=== PATIENT | male | born 1950 | race Caucasian/White ===

== ENCOUNTER → 2017-02-10 | Outpatient (CLI) | payer BC ==
[2017-02-10 10:17] LABS: Basophils % (A) 1 %; CH 31.5; CHCM 34.1; Eosinophils # (A) 0.1 k/uL (0-0.7); Eosinophils % (A) 2 %; HCT 47.4 % (39.0-53.0); HDW 2.46; HGB 15.8 gm/dL (13.0-17.5); Luc # (Auto) 0.12; Luc % (Auto) 3; Lymphocytes % (A) 23 %; MCHC 33.3 g/dL (31.0-37.0); Mean Platelet Volume 6.6; Monocytes # (A) 0.4 k/uL (0-1.0); Monocytes % (A) 9 %; Neutrophils # (A) 2.7 k/uL (1.3-7.7); Neutrophils % (A) 63 %; RDW 13.7 % (11.5-15.5); WBC 4.3 k/uL (3.8-10.6); WBC (Perox) 4.05
[2017-02-10 10:33] LABS: ALT 33 U/L (21-72); AST 26 U/L (17-59); Alkaline Phosphatase 69 U/L (38-126); Anion Gap 8 mmol/L; Blood Urea Nitrogen 19 mg/dL (9-20); Calcium 9.2 mg/dL (8.4-10.2); Carbon Dioxide 28 mmol/L (22-30); Chloride 102 mmol/L (98-107); Cholesterol 174 mg/dL (<200); Glucose 94 mg/dL (74-99); HDL Cholesterol 68 mg/dL (40-60); Non-African American GFR(MDRD) >60 (>60 ml/min/1.73 sqM); Potassium 5.1 mmol/L (3.5-5.1); Sodium 138 mmol/L (137-145); Total Bilirubin 0.7 mg/dL (0.2-1.3); Total Protein 6.7 g/dL (6.3-8.2)
[2017-02-10 12:45] LABS: Hemoglobin A1C 5.6 % (4.2-6.1)
== END | disposition home or self-care (01) ==
LOC: LABWHC1 09:41
PROVIDERS: ATTEND Internal Medicine Critical Care Medicine
DX: N40.0 Benign prostatic hyperplasia without lower urinary tract symptoms (principal); I71.2 Thoracic aortic aneurysm, without rupture; R53.83 Other fatigue; R63.4 Abnormal weight loss
CPT/HCPCS: 36415; 80053; 80061; 82306; 83036; 84439; 84443; 85025

== ENCOUNTER 2017-03-17 08:22 | Day surgery (SDC) | payer BC ==
[2017-03-13 11:20] VITALS: BMI 24.7
[~2017-03-17 08:22] MED LIST: LACTATED RINGERS 1,000 ML IV SCH
[2017-03-17 08:52] VITALS: RESP 16; TEMP 98.1
[2017-03-17] MEDS ORDERED: LIDOCAINE 1% 20 ML VIAL (10MG/ML) FOR IV START INTRADERMA ONE (08:55)
[2017-03-17] MEDS ORDERED: IV FLUID CONTINUATION 1,000 ML IV ONE (09:09)
[2017-03-17] MEDS ORDERED: PROPOFOL 10 MG/ML 20 ML VIAL IV ONE (10:01)
[2017-03-17] MEDS ORDERED: LIDOCAINE 1% INJ 10MG/ML (20 ML MDV) ONE (10:01)
--- NOTE | 2017-03-17 10:38 | P.PCN ---
Date of Procedure: 03/17/17 Procedure(s) Performed: Procedure: Colonoscopy and polypectomy. Preoperative diagnosis: Screening for neoplasia. Postoperative diagnosis: 1. Distal sigmoid polyp snared but no large polyps or cancer. 2. Minimal distal sigmoid diverticulosis. Preparation: HalfLytely prep. Sedation: Was provided by anesthesia. Brief clinical history: The patient is a 66-year-old male who is scheduled for this evaluation for screening for neoplasia age being his risk factor. He had a prior colonoscopy around 20 years ago and he does not remember having had any polyps removed. At this time, he has no abdominal complaints, bleeding or anemia. Procedure: With the patient on his left lateral decubitus position and after informed consent and adequate sedation, the perianal area was inspected and it did not show any fissures or fistulas. There were no masses felt on digital rectal examination. The Olympus CFQ 160L video colonoscope was then inserted in the rectum in the usual fashion and advanced to the cecum. The preparation was good. The mucosa appeared healthy. There was a rare very small diverticular orifice seen in the distal sigmoid with no evidence of acute diverticulitis or strictures. Also, in the distal sigmoid, there was a small to medium-sized multilobed polyp which I snared and retrieved by suction but there were no large polyps or cancer. I retroflexed the endoscope in the rectum before the endoscope was withdrawn. The patient tolerated the procedure well. Plan: The patient was reassured. Discussed dietary measures. He will follow up with you as planned and I recommended repeat exam in 5 years.
[2017-03-17 11:04] VITALS: BP 103/71; PULSE 59
== END 2017-03-17 11:29 | disposition home or self-care (01) ==
LOC: ORWHC2ENDO 08:22
DX: Z12.11 Encounter for screening for malignant neoplasm of colon (principal); D12.5 Benign neoplasm of sigmoid colon; K57.30 Diverticulosis of large intestine without perforation or abscess without bleeding; Z88.0 Allergy status to penicillin
CPT/HCPCS: 88305; 45385; J2001; J2704

== ENCOUNTER 2017-06-14 10:47 | Emergency (ER) | payer BC ==
[2017-06-14 11:00] VITALS: RESP 18
--- NOTE | 2017-06-14 11:31 | ED ---
General Adult HPI - General Chief complaint: Urogenital Stated complaint: UTI Time Seen by Provider: 06/14/17 11:09 Source: patient, RN notes reviewed Mode of arrival: ambulatory Limitations: no limitations - History of Present Illness Initial comments: 66-year-old male who presents emergency room today with a chief complaint of some rectal pain that began approximately a week ago. He states he had similar symptoms approximately a month ago was treated with an antibiotic and symptoms didn't improve. He states that symptoms have returned over the last week. Patient does admit to some symptoms of dysuria. He describes a burning sensation at times. Patient does admit that he does see a urologist. He states his PSA has been blowing his prostate checked in over a year. Patient denies any other complaint or symptoms. Denies any rash or skin change. He states that last time he had some hive-like symptoms. She does admit that he has noticed a bump on the left testicle as well. States that he does feel some pain here at times. Patient denies any recent fever, chills, shortness of breath, chest pain, back pain, abdominal pain, nausea or vomiting, numbness or tingling, constipation or diarrhea, headaches or visual changes, or any other complaints. - Related Data Home Medications Medication Instructions Recorded Confirmed Fexofenadine/Pseudoephedrine 1 tab PO DAILY PRN 06/14/17 06/14/17 [Kari-D 24 Hour Tablet] Previous Rx's Medication Instructions Recorded Ciprofloxacin HCl [Cipro] 500 mg PO Q12HR #20 day 06/14/17 Allergies Allergy/AdvReac Type Severity Reaction Status Date / Time Penicillins Allergy Swelling Verified 06/14/17 12:30 HANDS & FEET, ITCHING Review of Systems ROS Statement: Those systems with pertinent positive or pertinent negative responses have been documented in the HPI. ROS Other: All systems not noted in ROS Statement are negative. Past Medical History Additional Past Medical History / Comment(s): ENVIRONMENTAL ALLGERIES; POSS ASTHMA. STATES THORACIC "AORTA IS LONG." History of Any Multi-Drug Resistant Organisms: None Reported Past Surgical History: Hernia Repair Additional Past Surgical History / Comment(s): COLONOSCOPY Past Anesthesia/Blood Transfusion Reactions: Previous Problems w/ Anesthesia, Motion Sickness Additional Past Anesthesia/Blood Transfusion Reaction / Comment(s): WAS AWAKE BRIEFLY DURING LAST COLONOSCOPY Past Psychological History: No Psychological Hx Reported Smoking Status: Never smoker Past Alcohol Use History: None Reported Past Drug Use History: None Reported - Past Family History Mother Family Medical History: No Reported History Father Family Medical History: Cancer General Exam - General Exam Comments Initial Comments: General: The patient is awake and alert, in no distress, and does not appear acutely ill. Eye: Pupils are equal, round and reactive to light, extra-ocular movements are intact. No nystagmus. There is normal conjunctiva bilaterally. No signs of icterus. Ears, nose, mouth and throat: There are moist mucous membranes and no oral lesions. Neck: The neck is supple, there is no tenderness or JVD. Cardiovascular: There is a regular rate and rhythm. No murmur, rub or gallop is appreciated. Respiratory: Lungs are clear to auscultation, respirations are non-labored, breath sounds are equal. No wheezes, stridor, rales, or rhonchi. Gastrointestinal: Soft, non-distended, non-tender abdomen without masses or organomegaly noted. There is no rebound or guarding present. No CVA tenderness. Bowel sounds are unremarkable. Musculoskeletal: Normal ROM, no tenderness. Strength 5/5. Sensation intact. Pulses equal bilaterally 2+. Neurological: A&O x 3. CN II-XII intact, There are no obvious motor or sensory deficits. Coordination appears grossly intact. Speech is normal. Skin: Skin is warm and dry and no rashes or lesions are noted. Psychiatric: Cooperative, appropriate mood & affect, normal judgment. : Circumcised male. No obvious swelling or rash. Normal external exam. Normal rectal tone. Mild tenderness on exam. Patient has no swelling appreciated to the scrotum or testicles. Limitations: no limitations Course Vital Signs 06/14/17 10:57 Temperature 97.7 F Pulse Rate 60 Respiratory 18 Rate Blood Pressure 135/77 O2 Sat by Pulse 99 Oximetry Medical Decision Making - Medical Decision Making Patient's ultrasound has been reviewed and does show some cyst over on the right testicle. No other acute abnormalities. Patient urinalysis is unremarkable no sign of infection. Patient does have some tenderness with rectal exam. Patient will be covered for prostatitis placed on ciprofloxacin. He is advised to follow-up with his urologist over the next 2 days. Advised return here to the emergency room if symptoms increase or worsen or for any other concerns. - Lab Data Lab Results 06/14/17 Range/Units 11:45 Urine Color Colorless Urine Appearance Clear (Clear) Urine pH 6.5 (5.0-8.0) Ur Specific [place] 1.003 (1.001-1.035) Urine Protein Negative (Negative) Urine Glucose (UA) Negative (Negative) Urine Ketones Negative (Negative) Urine Blood Negative (Negative) Urine Nitrite Negative (Negative) Urine Bilirubin Negative (Negative) Urine Urobilinogen <2.0 (<2.0) mg/dL Ur Leukocyte Esterase Negative (Negative) Disposition Clinical Impression: Prostatitis Disposition: HOME SELF-CARE Condition: Good Instructions: Prostatitis (ED) Additional Instructions: Please use medication as discussed. Please follow-up with urologist in the next 2 days. Please return to emergency room if the symptoms increase or worsen or for any other concerns. Prescriptions: Ciprofloxacin HCl [Cipro] 500 mg PO Q12HR #20 day Referrals: Jaret Frankel DO [Primary Care Provider] - 1-2 days Time of Disposition: 13:15
[2017-06-14 12:03] LABS: Appearance,Urine Clear (Clear); Bilirubin,Urine Negative (Negative); Blood,Urine Negative (Negative); Color,Urine Colorless; Glucose,Urine (UA) Negative (Negative); Ketones,Urine Negative (Negative); Leukocyte Esterase,Urine Negative (Negative); Nitrite,Urine Negative (Negative); PH, Urine 6.5 (5.0-8.0); Protein,Urine Negative (Negative); Specific Gravity,Urine 1.003 (1.001-1.035); Urobilinogen,Urine <2.0 mg/dL (<2.0)
--- NOTE | 2017-06-14 12:39 | US ---
EXAMINATION TYPE: US scrotum with doppler. Grayscale and color Doppler Duplex imaging performed of t eloy scrotum. DATE OF EXAM: 06/14/2017 COMPARISON: NONE CLINICAL HISTORY: Pain. EXAM MEASUREMENTS: TESTICLES: Right Testicle: 5.6 x 2.2 x 3.1 cm Left Testicle: 5.1 x 2.0 x 3.0 cm EPIDIDYMIS HEAD: Right Epididymis: 3.2 cm Cysts largest measuring 2.9 x 1.7 x 2.3 Left Epididymis: 1.0 cm Doppler performed to assess for testicular vascularity; good bilateral color flow and waveforms are s een. There is no evidence of testicular torsion. Presence of hydroceles: no Presence of varicoceles: unable to asses on left no enough tissue to scan lateral or inferior IMPRESSION: No testicular torsion or mass. Right epididymal multiple cysts.
[2017-06-14 13:22] VITALS: BP 129/79; PULSE 59; TEMP 97.6
== END 2017-06-14 13:23 | disposition home or self-care (01) ==
LOC: EC 10:47
DX: N41.9 Inflammatory disease of prostate, unspecified (principal); N44.2 Benign cyst of testis; Z88.0 Allergy status to penicillin
CPT/HCPCS: 76870; 81003; 87086; 93975; 99284

== ENCOUNTER 2018-06-23 09:41 | Emergency (ER) | payer MEDICARE, BC ==
[2018-06-23] MEDS ORDERED: SODIUM CHLORIDE 0.9% 1,000 ML IV STA (09:53)
--- NOTE | 2018-06-23 10:26 | ED ---
Syncope HPI - General Chief Complaint: Chest Pain Stated Complaint: CHEST PAIN Time Seen by Provider: 06/23/18 09:53 Source: patient, RN notes reviewed, old records reviewed Mode of arrival: wheelchair Limitations: no limitations - History of Present Illness Initial Comments: This is a 67-year-old male to the ER for evaluation. Patient does say for evaluation OF chest pain with a near syncopal versus syncopal event. Unsure. There is no medical history takes no medication. States he does have gallbladder issues as he does experience pain after eating. But no prior evaluation. Patient one other syncopal episode about 12 years ago that was also social no chest pain with no significant findings. At that time patient to go to stress test and further testing. Patient currently feels little bit weak, family member states that he does look a little pale. Patient is still having mild chest pain MD Complaint: loss of consciousness, almost passed out -: hour(s) Prodromal Symptoms: chest pain Description of Event: other (None) -: second(s) Witnessed: no Injuries Sustained Associated with Event: None Current Symptoms: none History: previous syncopal episode Context: during exertion Treatments Prior to Arrival: none - Related Data Home Medications Medication Instructions Recorded Confirmed No Known Home Medications 06/23/18 06/23/18 Allergies Allergy/AdvReac Type Severity Reaction Status Date / Time Penicillins Allergy Swelling Verified 06/23/18 10:31 HANDS & FEET, ITCHING Review of Systems ROS Statement: Those systems with pertinent positive or pertinent negative responses have been documented in the HPI. ROS Other: All systems not noted in ROS Statement are negative. Past Medical History Additional Past Medical History / Comment(s): ENVIRONMENTAL ALLGERIES; POSS ASTHMA. STATES THORACIC "AORTA IS LONG." History of Any Multi-Drug Resistant Organisms: None Reported Past Surgical History: Hernia Repair Additional Past Surgical History / Comment(s): COLONOSCOPY Past Anesthesia/Blood Transfusion Reactions: Previous Problems w/ Anesthesia, Motion Sickness Additional Past Anesthesia/Blood Transfusion Reaction / Comment(s): WAS AWAKE BRIEFLY DURING LAST COLONOSCOPY Past Psychological History: No Psychological Hx Reported Smoking Status: Never smoker Past Alcohol Use History: Occasional Past Drug Use History: None Reported - Past Family History Mother Family Medical History: No Reported History Father Family Medical History: Cancer General Exam Limitations: no limitations General appearance: alert, in no apparent distress Head exam: Present: atraumatic, normocephalic, normal inspection Eye exam: Present: normal appearance, PERRL, EOMI. Absent: scleral icterus, conjunctival injection, periorbital swelling ENT exam: Present: normal exam, mucous membranes moist Neck exam: Present: normal inspection. Absent: tenderness, meningismus, lymphadenopathy Respiratory exam: Present: normal lung sounds bilaterally. Absent: respiratory distress, wheezes, rales, rhonchi, stridor Cardiovascular Exam: Present: regular rate, normal rhythm, normal heart sounds. Absent: systolic murmur, diastolic murmur, rubs, gallop, clicks GI/Abdominal exam: Present: soft, normal bowel sounds. Absent: distended, tenderness, guarding, rebound, rigid Extremities exam: Present: normal inspection, full ROM, normal capillary refill. Absent: tenderness, pedal edema, joint swelling, calf tenderness Back exam: Present: normal inspection Neurological exam: Present: alert, oriented X3, CN II-XII intact Psychiatric exam: Present: normal affect, normal mood Skin exam: Present: warm, dry, intact, normal color. Absent: rash Course Vital Signs 06/23/18 06/23/18 06/23/18 09:43 12:25 13:40 Temperature 97.7 F Pulse Rate 70 64 68 Respiratory 20 18 18 Rate Blood Pressure 170/86 130/82 114/87 O2 Sat by Pulse 99 97 97 Oximetry - Reevaluation(s) Reevaluation #1: 06/23/18 10:53 Medical records reviewed Reevaluation #2: 06/23/18 13:45 Patient is completely asymptomatic no headache chest pain shortness breath or abdominal pain. States he feels well like to be discharged home EKG Findings - EKG Comments: EKG Findings:: EKG shows sinus rhythm rate of 76, AL 150, QRS 104, QTc 459 Medical Decision Making - Medical Decision Making 67 male the ER with near syncopal events occurred while bending over, patient also states that he feels like and thinks that he has gallbladder issues. Recent ultrasound is positive for chronic cholecystitis which she will follow- up with surgery in the near future. Otherwise patient has no significant symptoms currently. Patient can be discharged home - Lab Data Result diagrams: 06/23/18 10:13 06/23/18 10:13 Lab Results 06/23/18 06/23/18 06/23/18 Range/Units 10:13 10:13 10:13 WBC 4.9 (3.8-10.6) k/uL RBC 5.41 (4.30-5.90) m/uL Hgb 16.4 (13.0-17.5) gm/dL Hct 48.3 (39.0-53.0) % MCV 89.3 (80.0-100.0) fL MCH 30.3 (25.0-35.0) pg MCHC 34.0 (31.0-37.0) g/dL RDW 12.7 (11.5-15.5) % Plt Count 338 (150-450) k/uL Neutrophils % 60 % Lymphocytes % 28 % Monocytes % 6 % Eosinophils % 3 % Basophils % 1 % Neutrophils # 2.9 (1.3-7.7) k/uL Lymphocytes # 1.4 (1.0-4.8) k/uL Monocytes # 0.3 (0-1.0) k/uL Eosinophils # 0.2 (0-0.7) k/uL Basophils # 0.0 (0-0.2) k/uL PT (9.0-12.0) sec INR (<1.2) APTT (22.0-30.0) sec D-Dimer (<0.60) mg/L FEU Sodium 139 (137-145) mmol/L Potassium 4.5 (3.5-5.1) mmol/L Chloride 103 (98-107) mmol/L Carbon Dioxide 27 (22-30) mmol/L Anion Gap 9 mmol/L BUN 20 (9-20) mg/dL Creatinine 0.85 (0.66-1.25) mg/dL Est GFR (CKD-EPI)AfAm >90 (>60 ml/min/1.73 sqM) Est GFR (CKD-EPI)NonAf >90 (>60 ml/min/1.73 sqM) Glucose 160 H (74-99) mg/dL Calcium 9.8 (8.4-10.2) mg/dL Magnesium 2.0 (1.6-2.3) mg/dL Total Bilirubin 0.9 (0.2-1.3) mg/dL AST 26 (17-59) U/L ALT 32 (21-72) U/L Alkaline Phosphatase 67 (38-126) U/L Total Creatine Kinase 173 H (55-170) U/L CK-MB (CK-2) 3.1 H (0.0-2.4) ng/mL CK-MB (CK-2) Rel Index 1.8 Troponin I <0.012 (0.000-0.034) ng/mL NT-Pro-B Natriuret Pep pg/mL Total Protein 6.8 (6.3-8.2) g/dL Albumin 4.6 (3.5-5.0) g/dL Lipase 97 (23-300) U/L 06/23/18 06/23/18 Range/Units 10:13 10:13 WBC (3.8-10.6) k/uL RBC (4.30-5.90) m/uL Hgb (13.0-17.5) gm/dL Hct (39.0-53.0) % MCV (80.0-100.0) fL MCH (25.0-35.0) pg MCHC (31.0-37.0) g/dL RDW (11.5-15.5) % Plt Count (150-450) k/uL Neutrophils % % Lymphocytes % % Monocytes % % Eosinophils % % Basophils % % Neutrophils # (1.3-7.7) k/uL Lymphocytes # (1.0-4.8) k/uL Monocytes # (0-1.0) k/uL Eosinophils # (0-0.7) k/uL Basophils # (0-0.2) k/uL PT 10.5 (9.0-12.0) sec INR 1.0 (<1.2) APTT 22.9 (22.0-30.0) sec D-Dimer 0.35 (<0.60) mg/L FEU Sodium (137-145) mmol/L Potassium (3.5-5.1) mmol/L Chloride (98-107) mmol/L Carbon Dioxide (22-30) mmol/L Anion Gap mmol/L BUN (9-20) mg/dL Creatinine (0.66-1.25) mg/dL Est GFR (CKD-EPI)AfAm (>60 ml/min/1.73 sqM) Est GFR (CKD-EPI)NonAf (>60 ml/min/1.73 sqM) Glucose (74-99) mg/dL Calcium (8.4-10.2) mg/dL Magnesium (1.6-2.3) mg/dL Total Bilirubin (0.2-1.3) mg/dL AST (17-59) U/L ALT (21-72) U/L Alkaline Phosphatase (38-126) U/L Total Creatine Kinase (55-170) U/L CK-MB (CK-2) (0.0-2.4) ng/mL CK-MB (CK-2) Rel Index Troponin I (0.000-0.034) ng/mL NT-Pro-B Natriuret Pep 52 pg/mL Total Protein (6.3-8.2) g/dL Albumin (3.5-5.0) g/dL Lipase (23-300) U/L - Radiology Data Radiology results: report reviewed (Ultrasound gallbladder positive for chronic cholecystitis), image reviewed Disposition Clinical Impression: Near syncope Disposition: HOME SELF-CARE Condition: Good Instructions: Near Syncope (ED), Cholecystitis (ED) Is patient prescribed a controlled substance at d/c from ED?: No Referrals: Jaret Frankel DO [Primary Care Provider] - 1-2 days
[2018-06-23 10:30] LABS: Basophils % (A) 1 %; Eosinophils # (A) 0.2 k/uL (0-0.7); Eosinophils % (A) 3 %; HCT 48.3 % (39.0-53.0); HGB 16.4 gm/dL (13.0-17.5); Lymphocytes # (A) 1.4 k/uL (1.0-4.8); Lymphocytes % (A) 28 %; MCH 30.3 pg (25.0-35.0); MCV 89.3 fL (80.0-100.0); Mean Platelet Volume 6.2; Monocytes # (A) 0.3 k/uL (0-1.0); Monocytes % (A) 6 %; Neutrophils # (A) 2.9 k/uL (1.3-7.7); Neutrophils % (A) 60 %; Platelet Count 338 k/uL (150-450); RBC 5.41 m/uL (4.30-5.90); RDW 12.7 % (11.5-15.5); WBC 4.9 k/uL (3.8-10.6)
[2018-06-23 10:42] LABS: ALT 32 U/L (21-72); AST 26 U/L (17-59); Albumin 4.6 g/dL (3.5-5.0); Alkaline Phosphatase 67 U/L (38-126); Anion Gap 9 mmol/L; Blood Urea Nitrogen 20 mg/dL (9-20); Calcium 9.8 mg/dL (8.4-10.2); Carbon Dioxide 27 mmol/L (22-30); Chloride 103 mmol/L (98-107); Glucose 160 mg/dL (74-99); Lipase 97 U/L (23-300); Potassium 4.5 mmol/L (3.5-5.1); Sodium 139 mmol/L (137-145); Total Bilirubin 0.9 mg/dL (0.2-1.3); Total Protein 6.8 g/dL (6.3-8.2)
[2018-06-23 10:53] LABS: Creatine Kinase 173 U/L (55-170)
[2018-06-23 10:56] LABS: D-Dimer 0.35 mg/L FEU (<0.60); Partial Thromboplastin Time 22.9 sec (22.0-30.0); Prothrombin Time 10.5 sec (9.0-12.0)
[2018-06-23 11:07] LABS: Creatine Kinase MB 3.1 ng/mL (0.0-2.4); Troponin I <0.012 ng/mL (0.000-0.034)
[2018-06-23 12:26] VITALS: RESP 18
--- NOTE | 2018-06-23 13:21 | US ---
EXAMINATION TYPE: US gallbladder DATE OF EXAM: 06/23/2018 COMPARISON: NONE CLINICAL HISTORY: Pain. Right sided abdominal pain, patient ate [employer] 2 hours prior to exam EXAM MEASUREMENTS: Liver Length: 14.2 cm Gallbladder Wall: 0.3 cm CBD: 0.4 cm Right Kidney: 10.7 x 4.9 x 5.1 cm Technical limitations due to large amount of overlying bowel content Pancreas: Obscured by bowel gas Liver: visualized portions appear within normal limits Gallbladder: contacted Evidence for sonographic Arshad's sign: no CBD: appears wnl Right Kidney: no evidence of hydronephrosis as visualized There is no ascites. IMPRESSION: Exam is limited. Gallbladder wall is borderline thickened and somewhat contracted, correl ate to exclude chronic cholecystitis.
[2018-06-23 13:41] VITALS: BP 114/87; PULSE 68
[2018-06-23 14:00] VITALS: TEMP 98.2
== END 2018-06-23 14:00 | disposition home or self-care (01) ==
LOC: EC 09:41
DX: R55 Syncope and collapse (principal); R07.9 Chest pain, unspecified; Z88.0 Allergy status to penicillin
CPT/HCPCS: 36415; 76705; 80053; 82550; 82553; 83690; 83735; 83880; 84484; 85025; 85379; 85610; 85730; 93005; 96360; 96361; 99285

== ENCOUNTER → 2018-07-15 | Outpatient (CLI) | payer MEDICARE ==
--- NOTE | 2018-07-15 17:33 | NM ---
EXAMINATION TYPE: NM hepatobiliary w EF DATE OF EXAM: 07/15/2018 COMPARISON: Ultrasound gallbladder 06/23/2017 HISTORY: Right upper quadrant pain TECHNIQUE: After the intravenous administration of 5.46 mCi Tc 99m Mebrofenin hepatobiliary scintigra phy is performed. Immediate images post injection. FINDINGS: There is satisfactory initial accumulation of tracer by the liver. The gallbladder is visualized wit hin 8 minutes. The small bowel activity is noted within 24 minutes. At one hour 8 ounces of oral en sure plus is given to mimic CCK and gallbladder ejection fraction is calculated at 92 %, in the above limit of normal range. Therefore there is no scintigraphic evidence of cystic or common bile duct o bstruction to suggest acute cholecystitis. IMPRESSION: Findings suggest possible hyper dynamic gallbladder.
--- NOTE | 2018-07-16 11:45 | ECHOF ---
Referral Reason:I71.2 Thoracic aneurysm w/o mention of rupture... MEASUREMENTS -------- HEIGHT: 175.3 cm WEIGHT: 78.0 kg BP: 137/83 IVSd: 1.3 cm (0.6 - 1.1) LVIDd: 4.5 cm (3.9 - 5.3) LVPWd: 1.2 cm (0.6 - 1.1) IVSs: 1.6 cm LVIDs: 3.0 cm LVPWs: 1.5 cm LA Diam: 3.3 cm (2.7 - 3.8) RVIDd: 2.9 cm (< 3.3) LAESV Index (A-L): 25.74 ml/m Ao Diam: 4.5 cm (2.0 - 3.7) EPSS: 1.2 cm MV E Mohit: 0.63 m/s MV DecT: 323 ms MV A Mohit: 1.02 m/s MV E/A Ratio: 0.62 RAP: 5.00 mmHg RVSP: 27.65 mmHg MV EF SLOPE: 70.53 mm/s (70 - 150) MV EXCURSION: 10.41 mm (> 18.000) FINDINGS -------- Sinus rhythm. This was a technically good study. The left ventricular size is normal. There is mild concentric left ventricular hypertrophy. Overa ll left ventricular systolic function is normal with, an EF between 60 - 65 %. The right ventricle is normal in size. Normal LA size by volume 22+/-6 ml/m2. The right atrium is normal in size. The aortic valve is trileaflet and appears structurally normal. The mitral valve leaflets are mildly thickened. Mild tricuspid regurgitation present. Right ventricular systolic pressure is normal at < 35 mmHg. The pulmonic valve was not well visualized. The aortic root is dilated measuring 4.5cm. Normal inferior vena cava with normal inspiratory collapse consistent with estimated right atrial pre ssure of 5 mmHg. There is no pericardial effusion. CONCLUSIONS -------- 1. Sinus rhythm. 2. This was a technically good study. 3. The left ventricular size is normal. 4. There is mild concentric left ventricular hypertrophy. 5. Overall left ventricular systolic function is normal with, an EF between 60 - 65 %. 6. The right ventricle is normal in size. 7. Normal LA size by volume 22+/-6 ml/m2. 8. The right atrium is normal in size. 9. The aortic valve is trileaflet and appears structurally normal. 10. The mitral valve leaflets are mildly thickened. 11. Mild tricuspid regurgitation present. 12. Right ventricular systolic pressure is normal at < 35 mmHg. 13. The pulmonic valve was not well visualized. 14. The aortic root is dilated measuring 4.5cm. 15. Normal inferior vena cava with normal inspiratory collapse consistent with estimated right atrial pressure of 5 mmHg. 16. There is no pericardial effusion. [employer]: Rose May RDCS
== END | disposition home or self-care (01) ==
LOC: RADECHMAIN 12:47
PROVIDERS: ATTEND Internal Medicine Critical Care Medicine
DX: K81.9 Cholecystitis, unspecified (principal); I07.1 Rheumatic tricuspid insufficiency
CPT/HCPCS: 93306; 78226; A9537

== ENCOUNTER → 2018-09-23 | Outpatient (CLI) | payer MEDICARE | END | disposition home or self-care (01) | LOC: LABWHC1 09:06 | PROVIDERS: ATTEND Urology | DX: N40.0 Benign prostatic hyperplasia without lower urinary tract symptoms (principal) | CPT/HCPCS: 36415; 84153; 84154 ==

== ENCOUNTER 2018-11-17 09:53 | Emergency (ER) | payer MEDICARE ==
[2018-11-17] MEDS ORDERED: DIPH,PERTUS(ACELL)TETVAC-LF 0.5 ML VIAL IM ONE (10:15)
--- NOTE | 2018-11-17 10:17 | ED ---
General Adult HPI - General Chief complaint: Wound/Laceration Stated complaint: HEAD INJURY Time Seen by Provider: 11/17/18 10:06 Source: patient, RN notes reviewed Mode of arrival: ambulatory Limitations: no limitations - History of Present Illness Initial comments: 68-year-old male presents to the emergency department for a chief complaint of head injury x 1 hour. Patient was working when a wooden 2 x 4 fell and hit him on the top of the head. Patient states this fell from a few feet above his head. States that people he was working with were trying to nail it into the wall when they dropped it. Patient states it did bleed. He denies any loss of consciousness. He denies any blood thinners. He denies any headache at this time. States he is feeling his normal self. States he is not up-to-date on tetanus. States that his friend from a brain hemorrhage so wanted to be evaluated. Patient has no other complaints at this time including shortness of breath, chest pain, abdominal pain, nausea or vomiting, headache, or visual changes. - Related Data Home Medications Medication Instructions Recorded Confirmed Fexofenadine/Pseudoephedrine 1 tab PO DAILY PRN 11/17/18 11/17/18 [Kari-D 12 Hour Tablet] Allergies Allergy/AdvReac Type Severity Reaction Status Date / Time Penicillins Allergy Swelling Verified 11/17/18 10:01 HANDS & FEET, ITCHING Review of Systems ROS Statement: Those systems with pertinent positive or pertinent negative responses have been documented in the HPI. ROS Other: All systems not noted in ROS Statement are negative. Past Medical History Additional Past Medical History / Comment(s): ENVIRONMENTAL ALLGERIES; POSS ASTHMA. STATES THORACIC "AORTA IS LONG." History of Any Multi-Drug Resistant Organisms: None Reported Past Surgical History: Hernia Repair Additional Past Surgical History / Comment(s): COLONOSCOPY Past Anesthesia/Blood Transfusion Reactions: Previous Problems w/ Anesthesia, Motion Sickness Additional Past Anesthesia/Blood Transfusion Reaction / Comment(s): WAS AWAKE BRIEFLY DURING LAST COLONOSCOPY Past Psychological History: No Psychological Hx Reported Smoking Status: Never smoker Past Alcohol Use History: Occasional Past Drug Use History: None Reported - Past Family History Mother Family Medical History: No Reported History Father Family Medical History: Cancer General Exam Limitations: no limitations General appearance: alert, in no apparent distress Head exam: Present: normocephalic, normal inspection. Absent: atraumatic (there is a small 1 cm x 1 cm abrasion noted to the top of the head) Eye exam: Present: normal appearance, PERRL, EOMI. Absent: scleral icterus, conjunctival injection, periorbital swelling, periorbital tenderness ENT exam: Present: normal exam, normal oropharynx, mucous membranes moist, TM's normal bilaterally (negative hemotympanum), normal external ear exam Neck exam: Present: normal inspection, full ROM. Absent: tenderness, meningismus, lymphadenopathy Respiratory exam: Present: normal lung sounds bilaterally. Absent: respiratory distress, wheezes, rales, rhonchi, stridor Cardiovascular Exam: Present: regular rate, normal rhythm, normal heart sounds. Absent: systolic murmur, diastolic murmur, rubs, gallop, clicks Neurological exam: Present: alert, oriented X3, CN II-XII intact, normal gait, other (GCS 15) Psychiatric exam: Present: normal affect, normal mood Course Vital Signs 11/17/18 09:54 Temperature 97.0 F L Pulse Rate 66 Respiratory 16 Rate Blood Pressure 150/85 O2 Sat by Pulse 97 Oximetry - Reevaluation(s) Reevaluation #1: 11/17/18 11:[address] stuck in dictated mode Medical Decision Making - Medical Decision Making 68-year-old male presents for headache injury after a 2 x 4 fell from a few feet above him and hit him in the head. Patient is well-appearing no neurologic deficits. No loss of consciousness. Small abrasion noted to the top of the skull, no lacerations. CT shows no acute intracranial hemorrhage or midline shift. There is a soft tissue contusion at the frontal skull vertex. Other age-related atrophy noted. Discussed concussion Russians the patient. Discussed going up with primary care in 1-2 days and returning here if he has any worsening symptoms. Disposition Clinical Impression: Head injury Disposition: HOME SELF-CARE Condition: Good Instructions (If sedation given, give patient instructions): Head Injury (ED) Additional Instructions: Please take Tylenol for pain. Please follow-up with primary care in 1-2 days. Monitor for signs of infection and return if these occur. Return if any other worsening symptoms such as severe headache or confusion. Is patient prescribed a controlled substance at d/c from ED?: No Referrals: Jaret Frankel, [Primary Care Provider] - 1-2 days Time of Disposition: 11:53
--- NOTE | 2018-11-17 11:49 | CT ---
EXAMINATION TYPE: CT brain wo con DATE OF EXAM: 11/17/2018 COMPARISON: None HISTORY: head injury CT DLP: 1174.4 mGycm Automated exposure control for dose reduction was used. TECHNIQUE: CT scan of the head is performed without contrast. FINDINGS: There is no acute intracranial hemorrhage or midline shift identified. There is mild vent ricular and sulcal prominence consistent with mild diffuse age-related cerebral atrophy. There a few areas of low-attenuation in the periventricular white matter most commonly related to chronic small vessel ischemic change. The globes are intact and the visualized sinuses are clear. Soft tissue co ntusion of the frontal skull vertex is seen. IMPRESSION: No acute intracranial hemorrhage or midline shift. There is mild age-related cerebral a trophy and few foci of periventricular/subcortical hypoattenuation, likely on the basis of chronic mi croangiopathy. Soft tissue contusion at the frontal skull vertex.
[2018-11-17 12:05] VITALS: BP 125/84; PULSE 64; RESP 18; TEMP 97.4
== END 2018-11-17 12:03 | disposition home or self-care (01) ==
LOC: EC 09:53
DX: S00.01XA Abrasion of scalp, initial encounter (principal); Z88.0 Allergy status to penicillin; Z23 Encounter for immunization; W20.8XXA Other cause of strike by thrown, projected or falling object, initial encounter; Y93.89 Activity, other specified; Y92.89 Other specified places as the place of occurrence of the external cause
CPT/HCPCS: 70450; 90471; 90715; 99283

== ENCOUNTER → 2023-06-03 | Outpatient (CLI) | payer MEDICARE ==
--- NOTE | 2023-06-09 20:25 | CT ---
EXAMINATION TYPE: CT sinus wo con CT DLP: 484.0 mGycm, Automated exposure control for dose reduction was used. DATE OF EXAM: 06/03/2023 2:51 PM COMPARISON: . CLINICAL INDICATION:Male, 72 years old with history of J32.9 CHRONIC SINUSITIS, UNSPECIFIED; , Chroni c sinusitis. TECHNIQUE: Multiple thin axial images were obtained through the paranasal sinuses without the use of IV contrast. Additional coronal and sagittal reformatted images were submitted for evaluation. Contrast used: none Oral contrast used: none FINDINGS: Frontal sinuses: Normally developed and aerated. Frontal Recess: Clear Maxillary Sinuses: Normally developed and aerated. Mild mucosal thickening on the left mostly inferio rly, and there are small polyps or mucous retention cysts seen along the medial wall measuring 4.6 mm and superior wall measuring 2.6 mm and 4 mm. A couple of dental implants in the posterior right maxi lla do not extend into the sinus cavity but there is mildly irregular new bone formation seen adjacen t to them superiorly along the inferior right maxillary sinus wall. Maxillary Infundibula([facility]): Patent with mild mucosal thickening mildly narrowing the infundibula. Ethmoid sinuses: Normally developed and aerated. Ethmoidal notch: Protected and abutting the lateral lamina. Sphenoid sinuses: Normally developed and aerated. There is unremarkable sphenoid sinus pneumatization without evidence of dehiscence. No dehiscence of carotid canal. No evidence of optic nerve dehiscen ce within the sphenoid sinus. Sphenoethmoidal recesses: Appear clear.. Nasal septum: Mild nasal septal deviation towards the left anteriorly and superiorly.. Nasal Turbinates: Within normal limits. . Mastoid air cells & middle ears: Mastoid air cells are somewhat underpneumatized but are otherwise cl ear. The middle ears are grossly unremarkable. Modified Soft tissues & Brain: Partially seen without gross abnormality. Globes appear intact. There has likely been prior lens surgery bilaterally.. Other: Cribriform plate demonstrates symmetric Keros classification type 3 cribriform plate. No evidence of bony dehiscence of skull base. Lamina papyracea is intact without evidence of remote orbital fracture or orbital prolapse into the e thmoid sinus. IMPRESSION: Mild mucosal thickening of the left maxillary sinus, with small mucous retention cysts or polyps. Ostiomeatal complexes appear patent with mild soft tissue narrowing of the infundibula bilaterally. No paranasal sinus air-fluid levels.
== END | disposition home or self-care (01) ==
LOC: RADCTMAIN 14:27
PROVIDERS: ATTEND Internal Medicine Critical Care Medicine
DX: J32.9 Chronic sinusitis, unspecified (principal); J34.89 Other specified disorders of nose and nasal sinuses; J34.1 Cyst and mucocele of nose and nasal sinus; M79.89 Other specified soft tissue disorders
CPT/HCPCS: 70486

== ENCOUNTER 2024-05-19 11:43 | Day surgery (SDC) | payer MEDICARE ==
[2024-05-17 09:45] VITALS: BMI 25.9
[2024-05-19 12:57] VITALS: TEMP 97.2
[2024-05-19] MEDS: IV FLUID CONTINUATION 1,000 ML IV ONE ×2 (12:57→13:31)
[2024-05-19] MEDS: LACTATED RINGERS 1,000 ML IV SCH (12:58)
[2024-05-19] MEDS: LIDOCAINE 1% (10MG/ML) FOR IV START INTRADERMA PRN (12:58)
[2024-05-19] MEDS ORDERED: PROPOFOL 10 MG/ML 20 ML VIAL IV ONE (13:32)
[2024-05-19] MEDS ORDERED: LIDOCAINE 1% INJ 10MG/ML (20 ML MDV) ONE (13:32)
--- NOTE | 2024-05-19 13:56 | P.PCN ---
Date of Procedure: 05/19/24 Procedure(s) Performed: BRIEF HISTORY: Patient is a 73-year-old pleasant white male scheduled for an elective colonoscopy as a part of evaluation by history of colon polyps PROCEDURE PERFORMED: Colonoscopy polypectomy and biopsy. PREOPERATIVE DIAGNOSIS: History of colon polyps. IV sedation per Anesthesia. PROCEDURE: After informed consent was obtained, the patient, was brought into the endoscopy unit. IV sedation was administered by Anesthesia under continuous monitoring. Digital rectal examination was normal. Initially the Olympus CF-160 flexible video colonoscope was then inserted in the rectum, gradually advanced into the cecum without any difficulty. Careful examination was performed as the scope was gradually being withdrawn. Ileocecal valve and the appendiceal orifice were visualized and appeared normal. Prep was excellent. Mucosa of the cecum, ascending colon, appeared normal. The transverse colon there was a 3 mm polyp removed by cold biopsy. In the descending colon is a 1.5 cm and 2.5 cm broad- based polyps both which were removed by snare polypectomy and complete polypect ranjit accomplished. Rest of the transverse colon, descending colon, sigmoid colon, and rectum appeared normal. Retroflexion was performed in the rectum and no lesions were seen. The patient tolerated the procedure well. IMPRESSION: 3 mm transverse colon polyp status post cold biopsy 1.5 cm and 2.5 cm broad-based descending colon polyp status post snare polypectomy RECOMMENDATIONS: Findings of this examination were discussed with the patient as well as his family.. Advised to follow with the biopsy results. If the biopsy reveals adenoma he can have repeat colonoscopy in 3 years.
[2024-05-19 14:04] VITALS: PULSE 58
[2024-05-19 14:32] VITALS: BP 121/70; RESP 18
== END 2024-05-19 14:34 | disposition home or self-care (01) ==
LOC: ORWHC2ENDO 11:43
PROVIDERS: ATTEND Internal Medicine Gastroenterology
DX: Z12.11 Encounter for screening for malignant neoplasm of colon (principal); D12.4 Benign neoplasm of descending colon; K62.1 Rectal polyp; J45.909 Unspecified asthma, uncomplicated; F17.200 Nicotine dependence, unspecified, uncomplicated; Z86.0100 Personal history of colon polyps, unspecified; Z88.0 Allergy status to penicillin; Z79.51 Long term (current) use of inhaled steroids
CPT/HCPCS: 88305; 45380; 45385; J2003; J2704